=== PATIENT | female | born 1935 | race Caucasian/White ===

== ENCOUNTER 2017-04-16 10:41 | Emergency (ER) | payer OTHER ==
[~2017-04-16] VITALS: Ht 160 cm; Wt 58.5 kg
[~2017-04-16 10:41] MED LIST: ASPIRIN325 PO; ATENOLOL 100MG100 M2 PO; CATAPRES-TTS 10.1 MG; COLACE100 MG; GLUCOPHAGE1000 MG PO; GLUCOSAMINE-CH1 EA33 PO; GLYBURIDE 5 MG T5 M1 PO; HYDROXYZINE HCL25 M2 PO; IBUPROFEN 200200 M1; K-DUR10 MEQ PO; MELATONIN3 MG; NIFEDIPINE ER60 M1 PO; NORTRIPTYLINE H25 M3 PO; ONE-A-DAY WOMENS PO; PEPCID20 MG; TUMS; VITCB500GO PO; ZOCOR40 MG PO
[2017-04-16 11:13] LABS: URINE BILIRUBIN NEGATIVE (Negative); URINE BLOOD NEGATIVE (Negative); URINE COLOR YELLOW; URINE GLUCOSE-RANDOM* NEGATIVE (Negative); URINE KETONES NEGATIVE (Negative); URINE NITRITE NEGATIVE (Negative); URINE PROTEIN (DIPSTICK) NEGATIVE (Negative); URINE UROBILINOGEN 0.2 E.U./dl (0.2-1.0)
[2017-04-16] MEDS ORDERED: KEFLEX500 MG PO (11:21)
[2017-04-16 11:53] VITALS: BP 142/57
[2017-04-16 12:06] LABS: BACTERIA None Seen /HPF (None Seen); CASTS None Seen /LPF (None Seen); CRYSTALS None Seen /LPF (None Seen); SQUAMOUS 4-10 Moderate /LPF (0-3); URINE RBC None Seen /HPF (0-2); URINE WBC 0-5 Rare /HPF (0-5)
== END 2017-04-16 11:54 | disposition home or self-care (01) ==
LOC: ER 10:41
PROVIDERS: Emergency Medicine
DX: N34.2 Other urethritis (principal); I10 Essential (primary) hypertension; E11.9 Type 2 diabetes mellitus without complications; Z90.710 Acquired absence of both cervix and uterus; Z98.890 Other specified postprocedural states; Z88.8 Allergy status to other drugs, medicaments and biological substances

== ENCOUNTER 2017-04-18 03:52 | Emergency (ER) | payer OTHER ==
[~2017-04-18] VITALS: Ht 162.6 cm; Wt 57.6 kg
[~2017-04-18 03:52] MED LIST changes: +KEFLEX500 MG PO
[2017-04-18] MEDS ORDERED: KEPPRA 500 MG500 M1 PO (04:31)
[2017-04-18 04:34] LABS: URINE BILIRUBIN NEGATIVE (Negative); URINE BLOOD TRACE (Negative); URINE COLOR YELLOW; URINE GLUCOSE-RANDOM* NEGATIVE (Negative); URINE KETONES NEGATIVE (Negative); URINE LEUKOCYTES-REFLEX NEGATIVE (Negative); URINE PROTEIN (DIPSTICK) NEGATIVE (Negative); URINE SPECIFIC GRAVITY <= 1.005 (1.003-1.035); URINE UROBILINOGEN 0.2 E.U./dl (0.2-1.0)
[2017-04-18 04:35] LABS: HEMATOCRIT 37.7 % (37.0-47.0); HEMOGLOBIN 13.2 gm/dL (12.0-15.0); MCH 32.3 pg (26.0-34.0); MCHC 35.1 g/dL (28.0-37.0); PLATELET COUNT 292 thou/uL (150-400); RDW 12.8 % (10.5-14.5); WBC 10.3 thou/uL (4.0-11.0)
[2017-04-18 04:36] LABS: MANUAL DIFF YES
[2017-04-18 04:46] LABS: CALCIUM 9.6 mg/dL (8.5-10.1); POTASSIUM 3.2 mmol/L (3.5-5.1)
[2017-04-18 05:52] LABS: TOTAL CELL COUNT 100
[2017-04-18 08:53] VITALS: BP 210/78
== END 2017-04-18 08:40 | disposition home or self-care (01) ==
LOC: ER 03:52
PROVIDERS: Emergency Medicine
DX: R33.9 Retention of urine, unspecified (principal); I10 Essential (primary) hypertension; E11.9 Type 2 diabetes mellitus without complications; Z90.710 Acquired absence of both cervix and uterus; Z98.890 Other specified postprocedural states; Z88.8 Allergy status to other drugs, medicaments and biological substances

== ENCOUNTER 2017-04-20 10:09 | Inpatient (IN) | payer OTHER ==
[~2017-04-20] VITALS: Ht 162.6 cm; Wt 57.2 kg
--- NOTE | ~2017-04-20 | EEG ---
[facility] [address] [place] [address] ELECTROENCEPHALOGRAM Name: KAMILLE AARON Room #: 438-P ADM IN M.R.#: [id number] Admission: 04/20/17 Attend Phys: Johan Lagos MD, [facility] Discharge: Date of : 35 Report #: [id number] THIS REPORT FOR: //name// CC: Cathy Lagos DATE OF SERVICE: 04/22/2017 This patient is being evaluated for altered mental status. EEG was done by placing the electrodes by standard 10-20 system of electrode placement. Both referential and sequential montages were used for recording. Background activity in this patient's EEG is about 8-9 Hz and 30 microvolts. The patient goes to sleep that is associated with bilateral slowing and vertex sharp waves. Photic stimulation was unremarkable. Throughout the record, no active epileptiform activity was noticed. IMPRESSION: This patient's EEG is intermixed with some theta range slowing on both sides. That is a nonspecific abnormality, which can occur with dementia, encephalopathy, effect of psychotropic medication. Thank you very much for this referral. By: 1153 1202 José Manriquez MD /nt
--- NOTE | ~2017-04-20 | EKG ---
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 : 1935 Requested By: Kevin Gardner Order Number: [id number] MD: Dashawn Barraza Measurements Intervals [place] Rate: 78 P: 14 SD: 170 QRS: 3 QRSD: 81 T: 56 QT: 433 QTc: 494 Interpretive Statements Sinus rhythm Borderline prolonged QT interval Compared to ECG 07/20/2015 00:57:15 ST (T wave) deviation no longer present Electronically Signed On 04-21-2017 13:35:09 CDT by Dashawn Barraza [email or web address] <ELECTRONICALLY SIGNED> By: Dashawn Barraza MD, [facility] 04/21/17 1335 1045 1045 Dashawn Barraza MD, [facility] /EPI
[~2017-04-20 10:09] MED LIST changes: +KEPPRA 500 MG500 M1 PO
[2017-04-20 10:10] VITALS: BP 125/58
[2017-04-20 10:30] LABS: URINE BILIRUBIN NEGATIVE (Negative); URINE BLOOD 1+ (Negative); URINE COLOR YELLOW; URINE GLUCOSE-RANDOM* NEGATIVE (Negative); URINE KETONES NEGATIVE (Negative); URINE NITRITE NEGATIVE (Negative); URINE PROTEIN (DIPSTICK) TRACE (Negative); URINE UROBILINOGEN 0.2 E.U./dl (0.2-1.0)
[2017-04-20 10:32] LABS: ABSOLUTE NEUTROPHILS 8.1 thou/uL (1.4-8.2); BASOPHILS 0.4 % (0.0-2.0); EOSINOPHILS 0.3 % (0.0-3.0); HEMATOCRIT 38.5 % (37.0-47.0); HEMOGLOBIN 13.3 gm/dL (12.0-15.0); LYMPHOCYTES 16.4 % (24.0-44.0); MCH 32.1 pg (26.0-34.0); MCHC 34.6 g/dL (28.0-37.0); MCV 92.7 fL (80.0-100.0); MONOCYTES 8.9 % (1.0-8.0); PLATELET COUNT 289 thou/uL (150-400); RBC 4.15 mil/uL (4.20-5.00); WBC 10.9 thou/uL (4.0-11.0)
[2017-04-20 10:33] LABS: MANUAL DIFF NO
[2017-04-20 10:44] LABS: CALCIUM 9.6 mg/dL (8.5-10.1); CREATININE 1.3 mg/dL (0.6-1.0)
[2017-04-20 11:07] LABS: HYALINE CASTS 0-3 Few /LPF (None Seen); SQUAMOUS 0-3 Few /LPF (0-3); URINE RBC 3-10 Few /HPF (0-2)
[2017-04-20 11:08] LABS: CRYSTALS None Seen /LPF (None Seen); URINE WBC 6-15 Few /HPF (0-5)
[2017-04-20 11:51] VITALS: BP 156/79
[2017-04-20 14:49] VITALS: BP 178/71
[2017-04-20 15:00] VITALS: BP 142/70
[2017-04-20 21:42] VITALS: BP 197/61
[2017-04-21] VITALS (8 sets, daily range): BP systolic 81–226; BP diastolic 42–89
[2017-04-21 04:40] LABS: ABSOLUTE NEUTROPHILS 8.2 thou/uL (1.4-8.2); BASOPHILS 0.4 % (0.0-2.0); EOSINOPHILS 0.4 % (0.0-3.0); HEMATOCRIT 42.7 % (37.0-47.0); HEMOGLOBIN 14.3 gm/dL (12.0-15.0); LYMPHOCYTES 18.3 % (24.0-44.0); MCH 31.5 pg (26.0-34.0); MCHC 33.6 g/dL (28.0-37.0); MCV 93.9 fL (80.0-100.0); MONOCYTES 10.6 % (1.0-8.0); PLATELET COUNT 293 thou/uL (150-400); POLYS 70.3 % (36.0-66.0); RBC 4.55 mil/uL (4.20-5.00); RDW 12.8 % (10.5-14.5); WBC 11.6 thou/uL (4.0-11.0)
[2017-04-21 04:48] LABS: MANUAL DIFF NO
[2017-04-21 04:49] LABS: POTASSIUM 3.4 mmol/L (3.5-5.1)
[2017-04-22 04:54] LABS: ABSOLUTE NEUTROPHILS 9.6 thou/uL (1.4-8.2); BASOPHILS 0.4 % (0.0-2.0); EOSINOPHILS 0.9 % (0.0-3.0); HEMATOCRIT 44.9 % (37.0-47.0); HEMOGLOBIN 15.1 gm/dL (12.0-15.0); LYMPHOCYTES 20.1 % (24.0-44.0); MCH 31.6 pg (26.0-34.0); MCHC 33.7 g/dL (28.0-37.0); MCV 93.8 fL (80.0-100.0); MONOCYTES 10.1 % (1.0-8.0); PLATELET COUNT 315 thou/uL (150-400); POLYS 68.5 % (36.0-66.0); RBC 4.78 mil/uL (4.20-5.00); RDW 12.8 % (10.5-14.5)
[2017-04-22 04:56] LABS: MANUAL DIFF NO
[2017-04-22 05:00] VITALS: BP 146/54
[2017-04-22 05:04] LABS: CALCIUM 9.4 mg/dL (8.5-10.1); CREATININE 0.9 mg/dL (0.6-1.0); POTASSIUM 3.7 mmol/L (3.5-5.1)
[2017-04-22 08:00] VITALS: BP 209/69
[2017-04-22 11:45] VITALS: BP 166/52
[2017-04-22 16:00] VITALS: BP 186/68
[2017-04-22 20:15] VITALS: BP 121/41
[2017-04-23 03:45] LABS: ABSOLUTE NEUTROPHILS 6.9 thou/uL (1.4-8.2); BASOPHILS 0.4 % (0.0-2.0); EOSINOPHILS 1.7 % (0.0-3.0); HEMATOCRIT 41.1 % (37.0-47.0); HEMOGLOBIN 14.3 gm/dL (12.0-15.0); LYMPHOCYTES 23.7 % (24.0-44.0); MCH 32.5 pg (26.0-34.0); MCHC 34.8 g/dL (28.0-37.0); MCV 93.4 fL (80.0-100.0); MONOCYTES 11.3 % (1.0-8.0); PLATELET COUNT 280 thou/uL (150-400); POLYS 62.9 % (36.0-66.0); RDW 12.9 % (10.5-14.5)
[2017-04-23 03:46] LABS: MANUAL DIFF NO
[2017-04-23 04:00] LABS: CALCIUM 9.3 mg/dL (8.5-10.1); CREATININE 0.9 mg/dL (0.6-1.0)
[2017-04-23 04:45] VITALS: BP 142/54
[2017-04-23 08:19] VITALS: BP 131/50
[2017-04-23] MEDS ORDERED: ULTRAM 50MG TAB50 MG PO (15:31)
[2017-04-23] MEDS ORDERED: FLOMAX0.4 MG PO (15:33)
[2017-04-23] MEDS ORDERED: REQUIP 0.25 M0.25 MG PO (15:33)
[2017-04-23 15:48] VITALS: BP 131/50
[2017-04-24] MEDS ORDERED: FLOMAX0.4 MG PO (08:17)
[2017-04-24] MEDS ORDERED: ATIVAN0.5 MG PO ×2 (09:57→13:32)
[2017-04-24] MEDS ORDERED: MAG-OXIDE400 MG PO (12:07)
[2017-04-24 14:13] LABS: ALPHA TOCOPHEROL 14.1 mg/L (6.5-21.5)
[2017-04-25 09:09] LABS: LEVETIRACETAM (KEPPRA) 12.4 ug/mL (10.0-40.0)
== END 2017-04-23 17:58 | disposition home or self-care (01) | DRG 871 ==
LOC: ER 10:09 → EROBS 11:24 → 4S 11:24 → ENTRNSPT 04-23 16:42 → 4S 04-23 17:58
PROVIDERS: Family Medicine; Nurse Practitioner; Psychiatry & Neurology Neurology
DX: A41.9 Sepsis, unspecified organism (principal); G93.41 Metabolic encephalopathy; N17.0 Acute kidney failure with tubular necrosis; N39.0 Urinary tract infection, site not specified; E11.9 Type 2 diabetes mellitus without complications; I10 Essential (primary) hypertension; F41.9 Anxiety disorder, unspecified; E86.0 Dehydration; R33.9 Retention of urine, unspecified; R45.1 Restlessness and agitation; Z87.891 Personal history of nicotine dependence; Z90.49 Acquired absence of other specified parts of digestive tract; Z90.710 Acquired absence of both cervix and uterus; Z79.899 Other long term (current) drug therapy; Z88.8 Allergy status to other drugs, medicaments and biological substances
CPT/HCPCS: 10195

== ENCOUNTER 2017-04-24 08:08 | Emergency (ER) | payer OTHER ==
[~2017-04-24] VITALS: Ht 162.6 cm; Wt 56.7 kg
--- NOTE | ~2017-04-24 | EKG ---
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
[~2017-04-24 08:08] MED LIST changes: +FLOMAX0.4 MG PO; +REQUIP 0.25 M0.25 MG PO; +ULTRAM 50MG TAB50 MG PO
[2017-04-24] MEDS ORDERED: FLOMAX0.4 MG PO (08:17)
[2017-04-24 09:43] LABS: URINE BILIRUBIN NEGATIVE (Negative); URINE BLOOD NEGATIVE (Negative); URINE COLOR YELLOW; URINE GLUCOSE-RANDOM* NEGATIVE (Negative); URINE KETONES NEGATIVE (Negative); URINE PROTEIN (DIPSTICK) NEGATIVE (Negative); URINE UROBILINOGEN 0.2 E.U./dl (0.2-1.0)
[2017-04-24 09:44] LABS: URINE LEUKOCYTES-REFLEX TRACE (Negative)
[2017-04-24] MEDS ORDERED: ATIVAN0.5 MG PO ×2 (09:57→13:32)
[2017-04-24 10:44] LABS: ABSOLUTE NEUTROPHILS 8.8 thou/uL (1.4-8.2); BASOPHILS 0.4 % (0.0-2.0); EOSINOPHILS 0.6 % (0.0-3.0); HEMATOCRIT 40.4 % (37.0-47.0); HEMOGLOBIN 13.3 gm/dL (12.0-15.0); LYMPHOCYTES 15.6 % (24.0-44.0); MCH 31.2 pg (26.0-34.0); MCHC 32.8 g/dL (28.0-37.0); MCV 95.1 fL (80.0-100.0); MONOCYTES 7.4 % (1.0-8.0); PLATELET COUNT 271 thou/uL (150-400); RBC 4.25 mil/uL (4.20-5.00); WBC 11.6 thou/uL (4.0-11.0)
[2017-04-24 10:49] LABS: ANION GAP 13 mmol/L (7-16); BUN 23 mg/dL (7-18); CALCIUM 9.5 mg/dL (8.5-10.1); CHLORIDE 100 mmol/L (98-107); CO2 22 mmol/L (21-32); CREATININE 0.9 mg/dL (0.6-1.0); GLUCOSE 214 mg/dL (74-106); MANUAL DIFF NO; POTASSIUM 4.6 mmol/L (3.5-5.1); SODIUM 135 mmol/L (136-145)
[2017-04-24 10:54] LABS: APTT 28.3 Seconds (24.5-32.8)
[2017-04-24 10:57] LABS: ALKALINE PHOSPHATASE 81 U/L (46-116); SGOT 31 U/L (15-37); SGPT 32 U/L (30-65); TOTAL BILIRUBIN 0.5 mg/dL (<0.1-1.0); TROPONIN-I < 0.04 ng/mL (<0.04-0.07)
[2017-04-24 11:13] LABS: ALBUMIN 3.6 g/dL (3.4-5.0); MAGNESIUM 1.3 mg/dL (1.8-2.4); TOTAL PROTEIN 6.7 g/dL (6.4-8.2)
[2017-04-24] MEDS ORDERED: MAG-OXIDE400 MG PO (12:07)
== END 2017-04-24 13:33 | disposition home or self-care (01) ==
LOC: ER 08:08
PROVIDERS: Emergency Medicine
DX: R33.9 Retention of urine, unspecified (principal); F41.9 Anxiety disorder, unspecified; J98.11 Atelectasis; K59.00 Constipation, unspecified; E83.42 Hypomagnesemia; E11.9 Type 2 diabetes mellitus without complications; I10 Essential (primary) hypertension; Z90.49 Acquired absence of other specified parts of digestive tract; Z90.710 Acquired absence of both cervix and uterus; Z88.8 Allergy status to other drugs, medicaments and biological substances

== ENCOUNTER 2017-07-23 12:34 | Emergency (ER) | payer OTHER ==
[~2017-07-23] VITALS: Ht 154.9 cm; Wt 49.0 kg
--- NOTE | ~2017-07-23 | EKG ---
[address] [address] [place] [address] ELECTROCARDIOGRAM REPORT Name: KAMILLE AARON [id number] Admission: 07/23/17 Attend Phys: Discharge: 07/23/17 Date of : 35 Report #: [id number] THIS REPORT FOR: //name// [facility] ED Test Date: 2017-07-23 Test Time: 12:41:29 Pat Name: KAMILLE AARON Department: Room: Gender: F Conservation Agent: [id number] : 1935 Requested By: Veronica Campoverde Order Number: [id number] MD: Dashawn Barraza Measurements Intervals [place] Rate: 56 P: 50 [place]: 168 QRS: -6 QRSD: 82 T: 52 QT: 476 QTc: 460 Interpretive Statements Sinus rhythm Probable left atrial enlargement Anteroseptal infarct, old Compared to ECG 04/24/2017 10:01:38 No significant change was found Electronically Signed On 07-24-2017 9:23:39 CORNCOB PIPE MANUFACTURING SUPERVISOR by Dashawn Barraza [email or web address] <ELECTRONICALLY SIGNED> By: Dashawn Barraza MD, [facility] 07/24/1723 1241 1241 Dashawn Barraza MD, FAC /EPI
[~2017-07-23 12:34] MED LIST changes: +ATIVAN0.5 MG PO; +MAG-OXIDE400 MG PO
[2017-07-23 13:17] LABS: ABSOLUTE NEUTROPHILS 6.6 thou/uL (1.4-8.2); BASOPHILS 0.5 % (0.0-2.0); EOSINOPHILS 0.4 % (0.0-3.0); HEMATOCRIT 39.5 % (37.0-47.0); HEMOGLOBIN 13.6 gm/dL (12.0-15.0); LYMPHOCYTES 26.2 % (24.0-44.0); MCH 32.4 pg (26.0-34.0); MCHC 34.4 g/dL (28.0-37.0); MCV 94.1 fL (80.0-100.0); MONOCYTES 9.2 % (1.0-8.0); PLATELET COUNT 253 thou/uL (150-400); POLYS 63.7 % (36.0-66.0); RDW 13.2 % (10.5-14.5); WBC 10.3 thou/uL (4.0-11.0)
[2017-07-23 13:22] LABS: MANUAL DIFF NO
[2017-07-23 13:28] LABS: ANION GAP 12 mmol/L (7-16); BUN 34 mg/dL (7-18); CALCIUM 10.7 mg/dL (8.5-10.1); CHLORIDE 99 mmol/L (98-107); CO2 28 mmol/L (21-32); CREATININE 1.1 mg/dL (0.6-1.0); GLUCOSE 138 mg/dL (74-106); POTASSIUM 3.7 mmol/L (3.5-5.1); SODIUM 139 mmol/L (136-145)
[2017-07-23 13:36] LABS: ALBUMIN 3.9 g/dL (3.4-5.0); ALKALINE PHOSPHATASE 70 U/L (46-116); DIRECT BILIRUBIN 0.1 mg/dL (<0.1-0.3); SGOT 28 U/L (15-37); SGPT 32 U/L (30-65); TOTAL BILIRUBIN 0.4 mg/dL (<0.1-1.0); TOTAL PROTEIN 7.3 g/dL (6.4-8.2); TROPONIN-I < 0.04 ng/mL (<0.06)
[2017-07-23] MEDS ORDERED: BISACODYL SUPP10 MG RECTAL (15:37)
== END 2017-07-23 16:25 | disposition home or self-care (01) ==
LOC: ER 12:34
PROVIDERS: Emergency Medicine
DX: K59.00 Constipation, unspecified (principal); R10.9 Unspecified abdominal pain; Z88.8 Allergy status to other drugs, medicaments and biological substances; Z88.2 Allergy status to sulfonamides

== ENCOUNTER 2017-07-30 17:11 | Inpatient (IN) | payer OTHER ==
[~2017-07-30] VITALS: Ht 165.1 cm; Wt 54.9 kg
--- NOTE | ~2017-07-30 | EKG ---
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 : 1935 Requested By: Swathi Varma Order Number: [id number] MD: Roger Zamudio Measurements Intervals [place] Rate: 130 P: [place]: QRS: 13 QRSD: 81 T: 61 QT: 341 QTc: 502 Interpretive Statements Atrial fibrillation Borderline low voltage, extremity leads ST depression, probably rate related Compared to ECG 08/03/2017 09:32:07 Sinus rhythm no longer present Atrial premature complex(es) no longer present ST (T wave) deviation still present Electronically Signed On 08-06-2017 15:28:48 GRAPPLE CREW LEADER by Roger Zamudio [email or web address] <ELECTRONICALLY SIGNED> By: Roger Zamudio MD 08/06/17 1528 0417 0417 Roger Zamudio MD /EPI
--- NOTE | ~2017-07-30 | 2DMMODE ---
[facility] [address] [place] [address] 2 D/M-MODE ECHOCARDIOGRAM Name: KAMILLE AARON Room #: 404-P ADM IN M.R.#: [id number] Admission: 07/30/17 Attend Phys: Antonio Bazan MD Discharge: Date of : 35 Date of Service: 07/31/17 1255 Report #: [id number] THIS REPORT FOR: //name// APPROVED REPORT Study performed: 07/31/2017 10:38:37 EXAM: Comprehensive 2D, Doppler, and color-flow Echocardiogram Patient Location: Bedside Room #: 404 Status: routine BSA: 1.60 HR: 76 bpm BP: 190/74 mmHg Rhythm: NSR Other Information Study Quality: Adequate Technically limited study due to restless and uncooperative patient. Limited measurements taken. Indications Elevated BNP. Hx: DM, HTN 2D Dimensions LVEF(%): 61.01 (>50%) IVSd: 9.88 (7-11mm) LVOT Diam: 19.54 (18-24mm) LVDd: 38.35 mm PWd: 10.12 (7-11mm) LVDs: 26.03 (25-40mm) Aortic Root: 30.29 mm Lua's LVEF: 61.01 % Aortic Valve AoV Peak Aiden.: 2.04 m/s AO Peak Gr.: 16.63 mmHg LVOT Max P.97 mmHg LVOT Max V: 1.12 m/s LUCAS Vmax: 1.64 cm2 Mitral Valve E/A Ratio: 0.8 MV Decel. Time: 287.01 ms MV E Max Aiden.: 1.19 m/s MV A Aiden.: 1.53 m/s MV PHT: 83.23 ms [facility] [place] [address] [place] [address] 2 D/M-MODE ECHOCARDIOGRAM Name: KAMILLE AARON Room #: 404- ADM IN ..#: [id number] Admission: 07/30/17 Attend Phys: Antonio Bazan MD Discharge: Date of : 35 Date of Service: 07/31/17 1255 Report #: [id number] Tricuspid Valve TR Peak Aiden.: 3.31 m/s RAP Estimate: 5.00 mmHg TR Peak Gr.: 43.82 mmHg PA Pressure: 49.00 mmHg Left Ventricle The left ventricle is normal size. There is normal LV segmental wall motion. There is normal left ventricular wall thickness. Left ventricular systolic function is normal. LVEF is 60-65%. Mild diastolic dysfunction is present (impaired relaxation pattern). Right Ventricle The right ventricle is normal size. The right ventricular systolic function is normal. Atria Left atrium is dilated. The right atrium size is normal. Aortic Valve Aortic valve is moderately calcified. No aortic regurgitation is present. Mild aortic stenosis. Calculated LUCAS by the continuity equation is 1.7cm2. Mitral Valve Moderate to severe mitral annular calcification. The mitral valve is thickened and caldified. Mild to moderate mitral regurgitation. Borderline mild mitral stenosis. Mean pressure gradient of 4mmHg. Tricuspid Valve The tricuspid valve is normal in structure. Moderate tricuspid regurgitation. Estimated PAP is 50mmHg. Pulmonic Valve The pulmonary valve is normal in structure. Trace pulmonic regurgitation. Great Vessels The aortic root is normal in size. IVC is normal in size and collapses >50% with inspiration. Pericardium There is no pericardial effusion. [facility] [address] [place] [address] 2 D/M-MODE ECHOCARDIOGRAM Name: KAMILLE AARON Room #: 404-P ADM IN M.R.#: [id number] Admission: 07/30/17 Attend Phys: Antonio Bazan MD Discharge: Date of : 35 Date of Service: 07/31/17 1255 Report #: [id number] <Conclusion> The left ventricle is normal size. Left ventricular systolic function is normal. Mild diastolic dysfunction is present (impaired relaxation pattern). The right ventricle is normal size. Left atrium is dilated. Aortic valve is moderately calcified. Mild aortic stenosis. Calculated LUCAS by the continuity equation is 1.7cm2. Moderate to severe mitral annular calcification. The mitral valve is thickened and caldified. Mild to moderate mitral regurgitation. Moderate tricuspid regurgitation. Estimated PAP is 50mmHg. <ELECTRONICALLY SIGNED> By: Rafi Lauren MD 07/31/17 1255 1255 1255 Rafi Lauren MD /INF
--- NOTE | ~2017-07-30 | EKG ---
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 : 1935 Requested By: Kevin Gardner Order Number: [id number] MD: Dashawn Barraza Measurements Intervals [place] Rate: 66 P: 55 NM: 157 QRS: 7 QRSD: 88 T: 55 QT: 443 QTc: 465 Interpretive Statements Sinus rhythm Poor septal R-wave progression Compared to ECG 07/23/2017 12:41:29 No significant change was found Electronically Signed On 08-02-2017 7:34:10 HISTORICAL SITE GUIDE by Dashawn Barraza [email or web address] <ELECTRONICALLY SIGNED> By: Dashawn Barraza MD, [facility] 08/02/17 0734 13 Dashawn Barraza MD, [facility] /EPI
--- NOTE | ~2017-07-30 | EKG ---
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 Artist: DAGOBERTO : 1935 Requested By: Antonio Bazan Order Number: [id number] MD: Roger Zamudio Measurements Intervals [place] Rate: 86 P: 64 [place]: 130 QRS: -4 QRSD: 84 T: 65 QT: 421 QTc: 504 Interpretive Statements Sinus rhythm Atrial premature complex Probable left atrial enlargement Borderline low voltage, extremity leads Borderline ST depression, anterolateral leads Prolonged QT interval Compared to ECG 07/30/2017 17:14:30 Atrial premature complex(es) now present ST (T wave) deviation now present Prolonged QT interval now present Electronically Signed On 08-04-2017 16:06:43 HEEL COVERER by Roger Zamudio [email or web address] <ELECTRONICALLY SIGNED> By: Roger Zamudio MD 08/04/17 1606 1 Roger Zamudio MD /EPI
[2017-07-30 17:11] VITALS: BP 184/65
[~2017-07-30 17:11] MED LIST changes: +BISACODYL SUPP10 MG RECTAL
[2017-07-30 18:04] LABS: ABSOLUTE NEUTROPHILS 6.8 thou/uL (1.4-8.2); BASOPHILS 0.5 % (0.0-2.0); EOSINOPHILS 0.6 % (0.0-3.0); HEMATOCRIT 39.7 % (37.0-47.0); HEMOGLOBIN 13.4 gm/dL (12.0-15.0); MCH 31.7 pg (26.0-34.0); MCHC 33.8 g/dL (28.0-37.0); MCV 93.7 fL (80.0-100.0); MONOCYTES 9.3 % (1.0-8.0); PLATELET COUNT 332 thou/uL (150-400); POLYS 61.6 % (36.0-66.0); RBC 4.24 mil/uL (4.20-5.00); RDW 13.2 % (10.5-14.5)
[2017-07-30 18:09] LABS: ANION GAP 7 mmol/L (7-16); BUN 26 mg/dL (7-18); CALCIUM 9.8 mg/dL (8.5-10.1); CHLORIDE 101 mmol/L (98-107); CO2 30 mmol/L (21-32); GLUCOSE 97 mg/dL (74-106); POTASSIUM 3.8 mmol/L (3.5-5.1); SODIUM 138 mmol/L (136-145)
[2017-07-30 18:24] LABS: ALBUMIN 3.9 g/dL (3.4-5.0); DIRECT BILIRUBIN < 0.1 mg/dL (<0.1-0.3); LIPASE 243 U/L (73-393); SGOT 30 U/L (15-37); SGPT 32 U/L (30-65); TOTAL BILIRUBIN 0.4 mg/dL (<0.1-1.0); TOTAL PROTEIN 7.3 g/dL (6.4-8.2); TROPONIN-I < 0.04 ng/mL (<0.06)
[2017-07-30 18:39] LABS: URINE BILIRUBIN NEGATIVE (Negative); URINE BLOOD NEGATIVE (Negative); URINE CLARITY CLEAR; URINE COLOR YELLOW; URINE GLUCOSE-RANDOM* NEGATIVE (Negative); URINE KETONES NEGATIVE (Negative); URINE LEUKOCYTES NEGATIVE (Negative); URINE NITRITE NEGATIVE (Negative); URINE PROTEIN (DIPSTICK) NEGATIVE (Negative); URINE UROBILINOGEN 0.2 E.U./dl (0.2-1.0)
[2017-07-30 19:39] VITALS: BP 204/91
[2017-07-30 20:00] VITALS: BP 184/67
[2017-07-31 03:55] VITALS: BP 198/61
[2017-07-31 06:24] VITALS: BP 169/54
[2017-07-31 08:00] VITALS: BP 190/74
[2017-07-31 09:42] LABS: TSH 3.584 uIU/mL (0.358-3.740)
[2017-07-31 16:17] VITALS: BP 106/49
[2017-07-31 20:40] VITALS: BP 134/44
[2017-07-31 23:11] LABS: 25-HYDROXY TOTAL 38.2 ng/mL (30.0-100.0)
[2017-08-01] VITALS (9 sets, daily range): BP systolic 142–195; BP diastolic 48–76
[2017-08-01 10:45] LABS: BASOPHILS 0.4 % (0.0-2.0); EOSINOPHILS 0.2 % (0.0-3.0); HEMATOCRIT 40.3 % (37.0-47.0); HEMOGLOBIN 13.7 gm/dL (12.0-15.0); LYMPHOCYTES 16.6 % (24.0-44.0); MCH 32.2 pg (26.0-34.0); MCHC 34.1 g/dL (28.0-37.0); MCV 94.6 fL (80.0-100.0); MONOCYTES 9.2 % (1.0-8.0); PLATELET COUNT 321 thou/uL (150-400); POLYS 73.6 % (36.0-66.0); RBC 4.26 mil/uL (4.20-5.00); RDW 13.4 % (10.5-14.5); WBC 10.9 thou/uL (4.0-11.0)
[2017-08-01 10:56] LABS: ALBUMIN 3.3 g/dL (3.4-5.0); CALCIUM 8.5 mg/dL (8.5-10.1); MAGNESIUM 1.8 mg/dL (1.8-2.4); TOTAL BILIRUBIN 0.4 mg/dL (<0.1-1.0); TOTAL PROTEIN 6.4 g/dL (6.4-8.2)
[2017-08-02 04:00] VITALS: BP 148/59
[2017-08-02 05:50] LABS: CALCIUM 8.3 mg/dL (8.5-10.1); CREATININE 0.9 mg/dL (0.6-1.0); POTASSIUM 3.7 mmol/L (3.5-5.1)
[2017-08-02 07:47] VITALS: BP 169/67
[2017-08-02] MEDS ORDERED: DIVALPROEX SOD250 M3 PO (09:30)
[2017-08-02] MEDS ORDERED: TUMS PO (09:31)
[2017-08-02] MEDS ORDERED: MELATONIN5 M1 PO (09:32)
[2017-08-02] MEDS ORDERED: MIRALAX17 GM PO (09:32)
[2017-08-02] MEDS ORDERED: VITAMIN D1000 UNI1 PO (09:32)
[2017-08-02 16:00] VITALS: BP 178/60
[2017-08-02 16:07] LABS: GLYCOHEMOGLOBIN (HGB A1C) 6.8 % (4.8-5.6)
[2017-08-02 19:37] VITALS: BP 204/74
[2017-08-02 20:06] LABS: LEVETIRACETAM (KEPPRA) 4.3 ug/mL (10.0-40.0)
[2017-08-02 23:23] VITALS: BP 163/59
[2017-08-03 04:29] VITALS: BP 192/84
[2017-08-03 07:50] VITALS: BP 175/53
[2017-08-03 09:25] VITALS: BP 156/50
[2017-08-03 09:36] VITALS: BP 166/55
[2017-08-03 09:54] LABS: BE(vivo) -0.8 mmol/L (-2 to +3); HCO3 23.1 mmol/L (22.0-26.0); PO2 74.6 mmHg (80.0-100.0); pH 7.425 (7.360-7.450); sO2 95.4 % (92.0-98.0)
[2017-08-03 10:36] LABS: ABSOLUTE NEUTROPHILS 9.1 thou/uL (1.4-8.2); BASOPHILS 0.3 % (0.0-2.0); HEMATOCRIT 38.1 % (37.0-47.0); LYMPHOCYTES 13.6 % (24.0-44.0); MCH 32.3 pg (26.0-34.0); MCV 94.9 fL (80.0-100.0); MONOCYTES 8.7 % (1.0-8.0); PLATELET COUNT 334 thou/uL (150-400); POLYS 77.4 % (36.0-66.0); RBC 4.02 mil/uL (4.20-5.00); RDW 13.3 % (10.5-14.5); WBC 11.7 thou/uL (4.0-11.0)
[2017-08-03 10:51] LABS: CALCIUM 8.3 mg/dL (8.5-10.1); CREATININE 0.8 mg/dL (0.6-1.0); POTASSIUM 3.6 mmol/L (3.5-5.1)
[2017-08-03 10:56] LABS: ALBUMIN 3.1 g/dL (3.4-5.0); TOTAL BILIRUBIN 0.4 mg/dL (<0.1-1.0); TOTAL PROTEIN 6.2 g/dL (6.4-8.2); TROPONIN-I 0.1 ng/mL (<0.06)
[2017-08-03 15:30] VITALS: BP 174/91
[2017-08-03 20:32] VITALS: BP 113/62
[2017-08-04 04:00] VITALS: BP 148/74
[2017-08-04 08:00] VITALS: BP 172/67
[2017-08-04 12:20] VITALS: BP 121/77
[2017-08-04 16:09] VITALS: BP 150/61
[2017-08-04 19:54] VITALS: BP 159/68
[2017-08-05 03:40] VITALS: BP 179/62
[2017-08-05 06:12] LABS: ABSOLUTE NEUTROPHILS 7.8 thou/uL (1.4-8.2); BASOPHILS 0.7 % (0.0-2.0); EOSINOPHILS 0.1 % (0.0-3.0); HEMATOCRIT 35.7 % (37.0-47.0); HEMOGLOBIN 11.8 gm/dL (12.0-15.0); LYMPHOCYTES 13.2 % (24.0-44.0); MCH 32.1 pg (26.0-34.0); MCHC 33.2 g/dL (28.0-37.0); MCV 96.6 fL (80.0-100.0); MONOCYTES 10.5 % (1.0-8.0); PLATELET COUNT 291 thou/uL (150-400); POLYS 75.5 % (36.0-66.0); RBC 3.69 mil/uL (4.20-5.00); RDW 13.4 % (10.5-14.5); WBC 10.4 thou/uL (4.0-11.0)
[2017-08-05 06:24] LABS: CALCIUM 8.6 mg/dL (8.5-10.1); CREATININE 0.9 mg/dL (0.6-1.0); MAGNESIUM 1.5 mg/dL (1.8-2.4); POTASSIUM 3.3 mmol/L (3.5-5.1)
[2017-08-05 08:00] VITALS: BP 136/76
[2017-08-05 20:24] VITALS: BP 162/72
[2017-08-06 03:20] VITALS: BP 142/86
[2017-08-06 04:45] VITALS: BP 135/75
[2017-08-06 06:19] LABS: ABSOLUTE NEUTROPHILS 6.4 thou/uL (1.4-8.2); BASOPHILS 0.3 % (0.0-2.0); EOSINOPHILS 0.3 % (0.0-3.0); HEMATOCRIT 32.3 % (37.0-47.0); HEMOGLOBIN 11.3 gm/dL (12.0-15.0); LYMPHOCYTES 17.9 % (24.0-44.0); MCHC 35.1 g/dL (28.0-37.0); MCV 93.9 fL (80.0-100.0); MONOCYTES 11.4 % (1.0-8.0); PLATELET COUNT 275 thou/uL (150-400); POLYS 70.1 % (36.0-66.0); RBC 3.44 mil/uL (4.20-5.00); RDW 13.4 % (10.5-14.5); WBC 9.1 thou/uL (4.0-11.0)
[2017-08-06 06:36] LABS: CALCIUM 9.3 mg/dL (8.5-10.1); CREATININE 0.8 mg/dL (0.6-1.0); MAGNESIUM 1.7 mg/dL (1.8-2.4); POTASSIUM 3.7 mmol/L (3.5-5.1)
[2017-08-06 07:37] VITALS: BP 153/61
[2017-08-06] MEDS ORDERED: LEVAQUIN 500 M500 M2 PO ×2 (11:26→16:52)
[2017-08-06] MEDS ORDERED: ASPIRIN325 PO (16:51)
[2017-08-06] MEDS ORDERED: AMLODIPINE BESYL5 M1 PO (16:51)
[2017-08-06] MEDS ORDERED: FLOMAX0.4 MG PO (16:51)
[2017-08-06] MEDS ORDERED: ATENOLOL 50MG T50 MG PO (16:51)
[2017-08-06 16:55] VITALS: BP 153/61
== END 2017-08-06 17:39 | disposition home health service (06) | DRG 70 ==
LOC: ER 17:11 → EROBS 18:50 → 4N 18:50 → ENTRNSPT 08-06 17:13 → 4N 08-06 17:39
PROVIDERS: Hospitalist; Internal Medicine; Nurse Practitioner; Registered Nurse
DX: G93.40 Encephalopathy, unspecified (principal); J18.1 Lobar pneumonia, unspecified organism; I50.30 Unspecified diastolic (congestive) heart failure; F41.9 Anxiety disorder, unspecified; G40.909 Epilepsy, unspecified, not intractable, without status epilepticus; G47.00 Insomnia, unspecified; K59.00 Constipation, unspecified; R41.0 Disorientation, unspecified; E88.09 Other disorders of plasma-protein metabolism, not elsewhere classified; T43.215A Adverse effect of selective serotonin and norepinephrine reuptake inhibitors, initial encounter; Y92.89 Other specified places as the place of occurrence of the external cause; R33.9 Retention of urine, unspecified; E86.0 Dehydration; I11.0 Hypertensive heart disease with heart failure; F20.9 Schizophrenia, unspecified; E87.6 Hypokalemia; E83.42 Hypomagnesemia; I48.0 Paroxysmal atrial fibrillation; E11.51 Type 2 diabetes mellitus with diabetic peripheral angiopathy without gangrene; F03.90 Unspecified dementia, unspecified severity, without behavioral disturbance, psychotic disturbance, mood disturbance, and anxiety; Z79.899 Other long term (current) drug therapy; Z88.8 Allergy status to other drugs, medicaments and biological substances; Z90.49 Acquired absence of other specified parts of digestive tract; Z90.710 Acquired absence of both cervix and uterus; Z87.891 Personal history of nicotine dependence
CPT/HCPCS: 10790

== ENCOUNTER 2017-08-08 10:23 | Emergency (ER) | payer MEDICARE ==
[~2017-08-08] VITALS: Ht 165.1 cm; Wt 54.9 kg
--- NOTE | ~2017-08-08 | EKG ---
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 : 1935 Requested By: Rosalio Christopher Order Number: [id number] MD: Dashawn Barraza Measurements Intervals [place] Rate: 78 P: 45 [place]: 141 QRS: 1 QRSD: 85 T: 43 QT: 433 QTc: 494 Interpretive Statements Sinus rhythm Probable left atrial enlargement Borderline prolonged QT interval Compared to ECG 08/06/2017 04:17:34 Atrial fibrillation no longer present ST (T wave) deviation no longer present Electronically Signed On 08-08-2017 17:04:26 ONLINE PROJECT MANAGER by Dashawn Barraza [email or web address] <ELECTRONICALLY SIGNED> By: Dashawn Barraza MD, [facility] 08/08/17 1704 1028 Dashawn Barraza MD, [facility] /EPI
[~2017-08-08 10:23] MED LIST changes: +AMLODIPINE BESYL5 M1 PO; +ATENOLOL 50MG T50 MG PO; +DIVALPROEX SOD250 M3 PO; +LEVAQUIN 500 M500 M2 PO; +MELATONIN5 M1 PO; +MIRALAX17 GM PO; +TUMS PO; +VITAMIN D1000 UNI1 PO
[2017-08-08 12:40] LABS: ABSOLUTE NEUTROPHILS 5.5 thou/uL (1.4-8.2); BASOPHILS 0.3 % (0.0-2.0); EOSINOPHILS 0.3 % (0.0-3.0); HEMATOCRIT 37.3 % (37.0-47.0); HEMOGLOBIN 12.9 gm/dL (12.0-15.0); LYMPHOCYTES 19.9 % (24.0-44.0); MCH 32.6 pg (26.0-34.0); MCHC 34.7 g/dL (28.0-37.0); MCV 93.9 fL (80.0-100.0); MONOCYTES 11.3 % (1.0-8.0); POLYS 68.2 % (36.0-66.0); RBC 3.97 mil/uL (4.20-5.00)
[2017-08-08 12:48] LABS: ANION GAP 11 mmol/L (7-16); BUN 15 mg/dL (7-18); CHLORIDE 100 mmol/L (98-107); CO2 29 mmol/L (21-32); GLUCOSE 91 mg/dL (74-106); PLATELET COUNT 369 thou/uL (150-400); POTASSIUM 3.1 mmol/L (3.5-5.1); SODIUM 140 mmol/L (136-145)
[2017-08-08 12:56] LABS: TROPONIN-I < 0.04 ng/mL (<0.06)
[2017-08-08] MEDS ORDERED: LASIX 20 MG TAB20 MG PO (14:09)
[2017-08-08 14:23] VITALS: BP 161/67
== END 2017-08-08 17:41 | disposition home or self-care (01) ==
LOC: ER 10:23
PROVIDERS: Emergency Medicine
DX: R06.00 Dyspnea, unspecified (principal); R07.89 Other chest pain; E11.9 Type 2 diabetes mellitus without complications; I10 Essential (primary) hypertension; F41.9 Anxiety disorder, unspecified; Z90.49 Acquired absence of other specified parts of digestive tract; Z90.710 Acquired absence of both cervix and uterus; Z88.8 Allergy status to other drugs, medicaments and biological substances